=== PATIENT | female | born 1950 | race Caucasian/White ===

== ENCOUNTER → 2020-10-23 | Outpatient (CLI) | payer MEDICARE, BC | LOC: CT 14:12 | DX: R91.8 Other nonspecific abnormal finding of lung field (principal) | CPT/HCPCS: 71260; Q9963 ==

== ENCOUNTER → 2021-11-13 | Outpatient (CLI) | payer MEDICARE, BC | LOC: US 07:59 → NM 09:00 | DX: I10 Essential (primary) hypertension (principal); E78.5 Hyperlipidemia, unspecified; G45.9 Transient cerebral ischemic attack, unspecified; R06.02 Shortness of breath; R07.89 Other chest pain; R93.0 Abnormal findings on diagnostic imaging of skull and head, not elsewhere classified; R94.31 Abnormal electrocardiogram [ECG] [EKG]; I25.9 Chronic ischemic heart disease, unspecified | CPT/HCPCS: 78452; 93017; 93880; A9502; J2785 ==

== ENCOUNTER → 2021-11-28 | Outpatient (CLI) | payer MEDICARE, BC ==
[~2021-11-28] MED LIST: ASPIRIN CHEWABL81 MG PO; BYSTOLIC20 MG PO; CARDURA8 MG PO; CATAPRES 0.1MG0.1 MG PO; CRESTOR 10 MG T10 MG PO; LEVOTHYROXINE125 MC1 PO; METFORMIN HCL500 M2 PO; MULTIPLE VITAM1 EACH PO; NITROSTAT0.4 MG SL; NORVASC5 MG PO; RANEXA500 MG PO; TRICOR 145 MG145 MG PO; VITAMIN D 40400 UNIT PO
[2021-11-28 07:38] LABS: RED BLOOD COUNT 4.66 M/UL (4.00-5.10); WHITE BLOOD COUNT 9.1 K/UL (4.5-11.0)
== END | disposition home or self-care (01) ==
LOC: CATH 06:30
PROVIDERS: Internal Medicine Cardiovascular Disease
DX: I25.119 Atherosclerotic heart disease of native coronary artery with unspecified angina pectoris (principal); I25.41 Coronary artery aneurysm; I10 Essential (primary) hypertension; E11.21 Type 2 diabetes mellitus with diabetic nephropathy; E78.5 Hyperlipidemia, unspecified; E03.9 Hypothyroidism, unspecified; M19.90 Unspecified osteoarthritis, unspecified site; Z88.0 Allergy status to penicillin; Z88.8 Allergy status to other drugs, medicaments and biological substances; Z79.82 Long term (current) use of aspirin; Z79.84 Long term (current) use of oral hypoglycemic drugs; Z79.899 Other long term (current) drug therapy; Z82.49 Family history of ischemic heart disease and other diseases of the circulatory system
CPT/HCPCS: 36415; 80048; 82962; 85025; 85610; 93005; 99152; C1769; C1887; C1894; J1644; J2250; J3010; J7030; Q9967